=== PATIENT | female | born 1990 | race Caucasian/White ===

== ENCOUNTER 2018-08-30 19:28 | Emergency (ER) | payer OTHER, MEDICAID ==
[~2018-08-30] VITALS: Ht 157.5 cm; Wt 76.7 kg
[~2018-08-30 19:28] MED LIST: ALBUTEROL INHAL17 GM IH; AZITHROMYCIN 2250 MG PO; BACTRIM DS TAB1 EACH PO; CIPRO500 MG PO; CYCLOBENZAPRINE10 MG PO; FLONASE 0.05%50 MCG NS; HYDROCODONE-AP1 EAC6 PO; HYDROCODONE-APA1 TA1 PO; IBUPROFEN 800800 M1 PO; IBUPROFEN 800800 MG PO; NAPROSYN500 MG PO; PHENERGAN 25 MG25 M1 PO; TRAMADOL 50 MG50 MG PO; ZOFRAN ODT4 MG PO
[2018-08-30] MEDS ORDERED: WOMEN'S DAILY1 EACH PO (19:42)
[2018-08-30] MEDS ORDERED: IBUPROFEN 600600 M1 PO (20:37)
[2018-08-30] MEDS ORDERED: NORCO 5-325 TA1 EACH PO (20:37)
[2018-08-30 21:06] VITALS: BP 142/86
== END 2018-08-30 21:08 | disposition home or self-care (01) ==
LOC: M.ERS 19:28
DX: M25.562 Pain in left knee (principal); F17.200 Nicotine dependence, unspecified, uncomplicated; Z88.5 Allergy status to narcotic agent; Z88.0 Allergy status to penicillin; Z98.890 Other specified postprocedural states; W01.0XXA Fall on same level from slipping, tripping and stumbling without subsequent striking against object, initial encounter; Y92.89 Other specified places as the place of occurrence of the external cause; Y93.01 Activity, walking, marching and hiking; Y99.8 Other external cause status

== ENCOUNTER 2018-09-30 19:44 | Emergency (ER) | payer OTHER, MEDICAID ==
[~2018-09-30] VITALS: Ht 154.9 cm; Wt 72.1 kg
[~2018-09-30 19:44] MED LIST changes: +IBUPROFEN 600600 M1 PO; +NORCO 5-325 TA1 EACH PO; +WOMEN'S DAILY1 EACH PO
[2018-09-30 20:05] LABS: URINE BILIRUBIN NEGATIVE (Negative); URINE BLOOD NEGATIVE (Negative); URINE CLARITY CLEAR; URINE COLOR YELLOW; URINE GLUCOSE-RANDOM NEGATIVE (Negative); URINE KETONES NEGATIVE (Negative); URINE LEUKOCYTES-REFLEX 1+ (Negative); URINE NITRITE-REFLEX NEGATIVE (Negative); URINE PROTEIN NEGATIVE (Negative); URINE UROBILINOGEN 0.2 E.U./dl (0.2-1.0)
[2018-09-30 20:12] LABS: CASTS None Seen /LPF (None Seen); CRYSTALS None Seen /LPF (None Seen); MUCUS 0-3 Light strn/LPF (None Seen); SQUAMOUS 0-3 Few /LPF (0-3); URINE RBC 0-2 Rare /HPF (0-2); URINE WBC-REFLEX >25 Many /HPF (0-5)
[2018-09-30 20:25] LABS: ABSOLUTE BASOPHILS 0.1 thou/uL (0.0-0.2); ABSOLUTE EOSINOPHILS 0.3 thou/uL (0.0-0.7); ABSOLUTE LYMPHOCYTES 3.2 thou/uL (0.8-5.3); ABSOLUTE MONOCYTES 1.1 thou/uL (0.0-1.2); ABSOLUTE NEUTROPHILS 6.7 thou/uL (1.6-8.1); BASOPHILS 0.9 %; EOSINOPHILS 2.3 %; HEMOGLOBIN 13.7 gm/dL (12.0-15.0); LYMPHOCYTES 28.2 %; MCH 29.9 pg (26.0-34.0); MCHC 34.3 g/dL (28.0-37.0); MCV 87.3 fL (80.0-100.0); MONOCYTES 9.6 %; MPV 8.3 fl. (7.2-11.1); NUCLEATED RBCS 0 /100WBC; PLATELET COUNT* 355 thou/uL (150-400); RBC 4.59 mil/uL (4.20-5.00); RDW-CV 13.7 % (10.5-14.5); WBC 11.3 thou/uL (4.0-11.0)
[2018-09-30 20:38] LABS: ALBUMIN 3.5 g/dL (3.4-5.0); CALCIUM 8.8 mg/dL (8.5-10.1); CREATININE 0.8 mg/dL (0.6-1.3); TOTAL BILIRUBIN 0.3 mg/dL (<0.1-1.0)
[2018-09-30 21:35] LABS: AMP/METHAMP Negative (Negative); BARBITURATES Negative (Negative); BENZODIAZEPINES POSITIVE (Negative); COCAINE Negative (Negative); METHADONE Negative (Negative); OPIATES Negative (Negative); PCP Negative (Negative); THC POSITIVE (Negative)
[2018-09-30] MEDS ORDERED: NORCO 5-325 TA1 EAC1 PO (22:15)
[2018-09-30] MEDS ORDERED: MACROBID 100 M100 M2 PO (22:15)
[2018-09-30] MEDS ORDERED: PHENERGAN 25 MG25 MG PO (22:15)
[2018-09-30 22:38] VITALS: BP 131/75
== END 2018-09-30 22:40 | disposition home or self-care (01) ==
LOC: M.ERS 19:44
PROVIDERS: Nurse Practitioner; Physician Assistant
DX: R10.32 Left lower quadrant pain (principal); R10.31 Right lower quadrant pain; Z88.5 Allergy status to narcotic agent; Z88.0 Allergy status to penicillin; Z98.890 Other specified postprocedural states

== ENCOUNTER 2019-03-31 12:14 | Emergency (ER) | payer OTHER, MEDICAID ==
[~2019-03-31] VITALS: Ht 154.9 cm; Wt 68.0 kg
[~2019-03-31 12:14] MED LIST changes: +MACROBID 100 M100 M2 PO; +NORCO 5-325 TA1 EAC1 PO; +PHENERGAN 25 MG25 MG PO
[2019-03-31 12:35] VITALS: BP 144/89
[2019-03-31] MEDS ORDERED: NORCO 5-325 TA1 EAC1 PO (13:09)
[2019-03-31] MEDS ORDERED: CLEOCIN HCL300 MG PO (13:09)
[2019-03-31] MEDS ORDERED: NABUMETONE 750750 M1 PO (13:09)
[2019-03-31] MEDS ORDERED: ONDANSETRON HCL4 M2 PO (13:09)
== END 2019-03-31 13:15 | disposition home or self-care (01) ==
LOC: M.ERS 12:14
DX: S02.5XXA Fracture of tooth (traumatic), initial encounter for closed fracture (principal); F17.200 Nicotine dependence, unspecified, uncomplicated; Z88.5 Allergy status to narcotic agent; Z88.0 Allergy status to penicillin; Z98.890 Other specified postprocedural states; X58.XXXA Exposure to other specified factors, initial encounter; Y93.89 Activity, other specified; Y92.89 Other specified places as the place of occurrence of the external cause; Y99.8 Other external cause status